=== PATIENT | female | born 1975 | race Caucasian/White ===

== ENCOUNTER → 2023-12-31 08:11 | Outpatient (REF) | payer BC, SELFPAY | LOC: WDC 08:11 | PROVIDERS: ATTENDING PHYSICIAN Nurse Practitioner Adult Health; FAMILY PHYSICIAN Family Medicine | DX: Z12.31 Encounter for screening mammogram for malignant neoplasm of breast (principal) | CPT/HCPCS: 77063; 77067 ==

== ENCOUNTER → 2025-01-04 07:56 | Outpatient (REF) | payer BC, SELFPAY | LOC: WDC 07:56 | PROVIDERS: ATTENDING PHYSICIAN Nurse Practitioner Adult Health; FAMILY PHYSICIAN Family Medicine | DX: Z12.31 Encounter for screening mammogram for malignant neoplasm of breast (principal) | CPT/HCPCS: 77063; 77067 ==